=== PATIENT | female | born 1940 | race Caucasian/White ===

== ENCOUNTER 2024-11-10 22:15 | Inpatient (IN) | payer OTHER ==
[~2024-11-10] VITALS: Ht 160 cm; Wt 65.8 kg
[2024-11-10 23:01] LABS: BASOPHILS # (AUTO) 0.1 K/uL (0.0-0.2); BASOPHILS % (AUTO) 0.7 % (0.0-2.0); EOSINOPHILS # (AUTO) 0.1 K/uL (0.0-0.7); EOSINOPHILS % (AUTO) 0.5 % (0.0-6.0); HEMATOCRIT 22 % (33-45); HEMOGLOBIN 7.2 g/dL (11.5-14.8); LYMPHOCYTES # (AUTO) 1.1 K/uL (0.8-4.8); LYMPHOCYTES % (AUTO) 8.9 % (20.0-44.0); MEAN CORPUSCULAR HEMOGLOBIN 27 PG (26.0-33.0); MEAN CORPUSCULAR HGB CONC 33 g/dl (31.0-36.0); MEAN CORPUSCULAR VOLUME 82 fL (82-100); MONOCYTES # (AUTO) 0.8 K/uL (0.1-1.30); MONOCYTES % (AUTO) 6.4 % (2.0-12.0); NEUTROPHILS # (AUTO) 10.5 K/uL (1.8-8.9); NEUTROPHILS % (AUTO) 83.5 % (43.0-81.0); PLATELET COUNT (AUTO) 443 K/uL (150-450); RED BLOOD CELL COUNT(AUTO) 2.69 MIL/uL (4.0-5.2); RED CELL DISTRIBUTION WIDTH 18.4 % (11.5-15.0); WHITE BLOOD COUNT (AUTO) 12.6 K/uL (4.3-11.0)
[2024-11-10 23:16] LABS: CALCIUM, SERUM 8.2 mg/dL (8.5-10.1); CREATININE 0.5 mg/dL (0.6-1.3); INR 1.26 (0.91-1.10); PARTIAL THROMBOPLASTIN TIME 35.5 SEC (24.3-34.3); PROTHROMBIN TIME 13.2 SECS (9.2-11.1)
[2024-11-10 23:20] LABS: ALBUMIN 1.5 g/dL (3.4-5.0); BILIRUBIN,DIRECT 0.4 mg/dL (0.0-0.2); BILIRUBIN,TOTAL 0.6 mg/dL (0.2-1.0); TOTAL PROTEIN, SERUM 5.6 g/dL (6.4-8.2)
[2024-11-10 23:31] LABS: EOSINOPHILS % (MANUAL) 1 % (0-4); LYMPHOCYTES % (MANUAL) 8 % (16-48); MONOCYTES % (MANUAL) 3 % (0-11.0); NEUTROPHILS % (MANUAL) 88 (42-76)
[2024-11-10 23:32] LABS: ANISOCYTOSIS 1+; PLATELET ESTIMATE ADEQUATE; TARGET CELLS FEW
[2024-11-11] MEDS: IV NS 0.9% 1,000 ML BAG IV ONE (00:12)
[2024-11-11] MEDS ORDERED: PIPERACI/TAZO 3.375GM/D5W 50ML PB IV ONE (00:16)
[2024-11-11] MEDS ORDERED: VANCOMYCIN 1 GM /D5W 250 ML PB IV ONE (00:16)
[2024-11-11 00:24] LABS: APPEARANCE,URINE CLOUDY (CLEAR); BILIRUBIN,URINE NEGATIVE (NEGATIVE); BLOOD, URINE 3+ Ery/uL (NEGATIVE); COLOR,URINE YELLOW (YELLOW); KETONES,URINE TRACE mg/dL (NEGATIVE); LEUKOCYTE ESTERASE ,URINE 2+ (NEGATIVE); NITRITE, URINE NEGATIVE (NEGATIVE); PROTEIN,URINE 2+ mg/dl (NEGATIVE); UGLUCOSE NEGATIVE (NEGATIVE); UROBILINOGEN,URINE 0.2 EU/dL (0.2)
[2024-11-11] MEDS ORDERED: MAGNESIUM HYDROXIDE 30 ML UDC PO PRN (00:30)
[2024-11-11] MEDS ORDERED: DEXTROSE 50%-WATER 50 ML DISP.SYRIN IV PRN (00:30)
[2024-11-11] MEDS ORDERED: ACETAMINOPHEN 650 MG/20.3 ML UDC GT PRN (00:30)
[2024-11-11] MEDS ORDERED: ACETAMINOPHEN 325 MG TABLET PO PRN (00:30)
[2024-11-11] MEDS ORDERED: ONDANSETRON HCL/PF 4 MG/2 ML VIAL IVP PRN (00:30)
[2024-11-11 00:40] LABS: LACTIC ACID 2.4 mmol/L (0.4-2.0)
[2024-11-11] MEDS: PIPERACILLIN /TAZOBACTAM 3.375 G in IV D5W 50 ML IV ONE ×2 (00:43→05:14)
[2024-11-11 00:44] LABS: ADD URINE CULTURE YES; BACTERIA,URINE Many /HPF (None Seen); RBC,URINE 51-80 /HPF (0-2); SQUAMOUS EPITHELIAL CELL,UR Moderate /HPF (None Seen); WBC,URINE 21-50 /HPF (0-3)
[2024-11-11] MEDS: VANCOMYCIN 1 GM in IV D5W 250 ML IV ONE (00:53)
[2024-11-11] MEDS: POTASSIUM CL. PREMIX PERIPHER. 50 ML IV SCH (02:05)
[2024-11-11] MEDS ORDERED: POTASSIUM CL. PREMIX PERIPHER. 200 ML ONE (02:11)
[2024-11-11 03:10] VITALS: BP 144/84; TEMP 99.7; O2SAT 100
[2024-11-11] MEDS: POTASSIUM CHLORIDE 20 MEQ POWDER PACKET PEG ONE (04:50)
[2024-11-11] MEDS: POTASSIUM CHLORIDE 20 MEQ POWDER PACKET ONE (04:52)
[2024-11-11] MEDS: PIPERACI/TAZO 3.375GM/D5W 50ML PB IV ONE (05:15)
[2024-11-11] MEDS: BLOOD SUGAR DIAGNOSTIC 1 EACH STRIP IN SCH (05:26)
[2024-11-11] MEDS: INSULIN REGULAR, HUMAN 100 UNIT/ML 3 ML VIAL SQ PRN (05:28)
[2024-11-11] MEDS: VANCOMYCIN 750 MG in IV D5W 250 ML IV ONE (07:37)
[2024-11-11 08:00] VITALS: BP 103/66; TEMP 98.6; O2SAT 100
[2024-11-11] MEDS: PANTOPRAZOLE 40 MG TABLET.DR PO SCH (08:37)
[2024-11-11] MEDS ORDERED: LEVE100S GT (09:01)
[2024-11-11] MEDS ORDERED: NA P133E RC (09:01)
[2024-11-11] MEDS ORDERED: ACET-2070 GT (09:01)
[2024-11-11] MEDS ORDERED: FERR220E2 GT (09:01)
[2024-11-11] MEDS ORDERED: AMIN30LI66 GT (09:01)
[2024-11-11] MEDS ORDERED: ACET160L44 GT (09:01)
[2024-11-11] MEDS ORDERED: LEVO75TA7 GT (09:01)
[2024-11-11] MEDS ORDERED: ASCO500L2 GT (09:01)
[2024-11-11] MEDS ORDERED: CALC-261 GT (09:01)
[2024-11-11] MEDS ORDERED: APIX2.5T GT (09:01)
[2024-11-11] MEDS ORDERED: ALBU2.5V38 IH ×2 (09:01)
[2024-11-11] MEDS ORDERED: ATOR80TA GT (09:01)
[2024-11-11] MEDS ORDERED: ASPI-1169 GT (09:01)
[2024-11-11] MEDS ORDERED: INSU100V39 SQ (09:01)
[2024-11-11] MEDS ORDERED: MULT9LIQ6 GT (09:01)
[2024-11-11] MEDS ORDERED: ACET-2030 GT (09:01)
[2024-11-11] MEDS ORDERED: ZINC1CAP2 GT (09:01)
[2024-11-11] MEDS ORDERED: POLY17PO4 GT (09:01)
[2024-11-11] MEDS ORDERED: SENN-261 GT (09:01)
[2024-11-11] MEDS ORDERED: METO5SOL2 GT (09:01)
[2024-11-11] MEDS ORDERED: CHLO118L3 MM (09:01)
[2024-11-11] MEDS ORDERED: MIDO5TAB4 GT (09:01)
[2024-11-11] MEDS: PIPERACILLIN /TAZOBACTAM 3.375 G in IV D5W 100 ML IV SCH (10:09)
[2024-11-11] MEDS ORDERED: NA PHOS,M-B/NA PHOS,DI-BA 1 EA ENEMA RC PRN ×2 (11:00)
[2024-11-11] MEDS ORDERED: POTASSIUM CHLORIDE 10 MEQ/50 ML PREMIXED IVPB FOR PERIPHERAL LINE IV ONE (11:00)
[2024-11-11] MEDS ORDERED: Medication Not On Formulary EA (Acetaminophen 20 ML) GT PRN ×2 (11:00)
[2024-11-11] MEDS ORDERED: ALBUTEROL FS 2.5 MG/3 ML VIAL.NEB IH PRN ×2 (11:00)
[2024-11-11] MEDS ORDERED: ACETAMINOPHEN ES 500 MG TABLET GT PRN ×2 (11:00)
[2024-11-11 11:03] LABS: BASOPHILS % (AUTO) 0.3 % (0.0-2.0); EOSINOPHILS % (AUTO) 0.3 % (0.0-6.0); HEMATOCRIT 22 % (33-45); LYMPHOCYTES # (AUTO) 0.9 K/uL (0.8-4.8); LYMPHOCYTES % (AUTO) 6.5 % (20.0-44.0); MEAN CORPUSCULAR HEMOGLOBIN 26 PG (26.0-33.0); MEAN CORPUSCULAR HGB CONC 32 g/dl (31.0-36.0); MEAN CORPUSCULAR VOLUME 83 fL (82-100); MONOCYTES # (AUTO) 0.8 K/uL (0.1-1.30); MONOCYTES % (AUTO) 6.5 % (2.0-12.0); NEUTROPHILS # (AUTO) 11.3 K/uL (1.8-8.9); NEUTROPHILS % (AUTO) 86.4 % (43.0-81.0); PLATELET COUNT (AUTO) 459 K/uL (150-450); RED BLOOD CELL COUNT(AUTO) 2.66 MIL/uL (4.0-5.2); RED CELL DISTRIBUTION WIDTH 18.6 % (11.5-15.0); WHITE BLOOD COUNT (AUTO) 13.1 K/uL (4.3-11.0)
[2024-11-11 11:10] LABS: BILIRUBIN,TOTAL 0.8 mg/dL (0.2-1.0); CALCIUM, SERUM 7.4 mg/dL (8.5-10.1); CREATININE 0.4 mg/dL (0.6-1.3); MAGNESIUM 1.5 mg/dL (1.8-2.4); PHOSPHORUS 3.4 mg/dL (2.5-4.9); POTASSIUM 4.9 mmol/L (3.5-5.1); TOTAL PROTEIN, SERUM 5.2 g/dL (6.4-8.2)
[2024-11-11 11:30] LABS: ALBUMIN 1.4 g/dL (3.4-5.0)
[2024-11-11 12:00] VITALS: BP 100/60; TEMP 98.8; O2SAT 100
[2024-11-11] MEDS ORDERED: ALBUTEROL FS 2.5 MG/3 ML VIAL.NEB IH SCH (12:00)
[2024-11-11] MEDS: GLUCERNA 1.2 1,000 ML BOTTLE NG PRN (12:22)
[2024-11-11 12:50] LABS: IRON, SERUM 8 ug/dl (50-175); TOTAL IRON BINDING CAPACITY 98 ug/dl (250-450)
[2024-11-11] MEDS ORDERED: MIDODRINE HCL (5MG) 5 MG TABLET GT SCH (13:00)
[2024-11-11] MEDS ORDERED: METOCLOPRAMIDE HCL 10 MG/10 ML UDC GT SCH (13:00)
[2024-11-11] MEDS: METOCLOPRAMIDE HCL 10 MG/10 ML UDC GT SCH (13:09)
[2024-11-11] MEDS: MEROPENEM 1 G in IV NS 0.9% 100 ML IV SCH (13:09)
[2024-11-11] MEDS: MIDODRINE HCL (5MG) 5 MG TABLET GT SCH (13:09)
[2024-11-11] MEDS: THERAHONEY GEL 1.5 OZ TUBE TP SCH (13:10)
[2024-11-11] MEDS: POTASSIUM CHLORIDE 10 MEQ/50 ML PREMIXED IVPB FOR PERIPHERAL LINE IV ONE (13:10)
[2024-11-11] MEDS: ALBUTEROL FS 2.5 MG/3 ML VIAL.NEB IH SCH (13:37)
[2024-11-11] MEDS: Potassium Chloride 20 MEQ in IV NS 0.9% 1,000 ML IV SCH (13:54)
[2024-11-11 13:59] LABS: FERRITIN 713 ng/mL (8-388)
[2024-11-11 14:06] LABS: BAND % (MANUAL) 2 % (0.0-5.0); LYMPHOCYTES % (MANUAL) 3 % (16-48); MONOCYTES % (MANUAL) 5 % (0-11.0); NEUTROPHILS % (MANUAL) 90 (42-76); PLATELET ESTIMATE INCREASED
[2024-11-11 14:07] LABS: ANISOCYTOSIS 1+; HYPOCHROMASIA 1+
[2024-11-11 16:00] VITALS: BP 96/58; TEMP 98.8; O2SAT 100
[2024-11-11] MEDS ORDERED: Medication Not On Formulary EA (Amino AC/Protein Hydr/Whey Pro (Liquacel Liquid Protein GT SCH (17:00)
[2024-11-11] MEDS: SENNOSIDES 8.6 MG TABLET GT SCH (17:12)
[2024-11-11] MEDS: PROSOURCE / PROSTAT (PYXIS) 30 ML UDC GT SCH (17:13)
[2024-11-11] MEDS ORDERED: SENNOSIDES 8.6 MG TABLET GT SCH (18:00)
[2024-11-11 20:00] VITALS: BP 98/63; TEMP 97.5; O2SAT 100
[2024-11-11] MEDS ORDERED: LEVETIRACETAM SOL (5 ML) 100 MG/ML UDC GT SCH (21:00)
[2024-11-11] MEDS: LEVETIRACETAM SOL (5 ML) 100 MG/ML UDC GT SCH (21:08)
[2024-11-11] MEDS ORDERED: Medication Not On Formulary EA (Atorvastatin Calcium (Lipitor) 80 MG) GT SCH (22:00)
[2024-11-11] MEDS: ATORVASTATIN 40 MG TABLET GT SCH (23:19)
[2024-11-12] VITALS (10 sets, daily range): BP systolic 90–116; BP diastolic 60–86; TEMP 97.5–98.6; O2SAT 99–100
[2024-11-12 06:57] LABS: BASOPHILS # (AUTO) 0.1 K/uL (0.0-0.2); BASOPHILS % (AUTO) 0.4 % (0.0-2.0); EOSINOPHILS # (AUTO) 0.2 K/uL (0.0-0.7); EOSINOPHILS % (AUTO) 0.9 % (0.0-6.0); HEMATOCRIT 23 % (33-45); HEMOGLOBIN 7.5 g/dL (11.5-14.8); LYMPHOCYTES # (AUTO) 0.9 K/uL (0.8-4.8); LYMPHOCYTES % (AUTO) 5.5 % (20.0-44.0); MEAN CORPUSCULAR HEMOGLOBIN 27 PG (26.0-33.0); MEAN CORPUSCULAR HGB CONC 33 g/dl (31.0-36.0); MEAN CORPUSCULAR VOLUME 83 fL (82-100); MONOCYTES # (AUTO) 1.2 K/uL (0.1-1.30); MONOCYTES % (AUTO) 7.2 % (2.0-12.0); NEUTROPHILS # (AUTO) 14.6 K/uL (1.8-8.9); PLATELET COUNT (AUTO) 373 K/uL (150-450); RED BLOOD CELL COUNT(AUTO) 2.79 MIL/uL (4.0-5.2); RED CELL DISTRIBUTION WIDTH 17.7 % (11.5-15.0)
[2024-11-12 07:09] LABS: CALCIUM, SERUM 7.9 mg/dL (8.5-10.1); CREATININE 0.6 mg/dL (0.6-1.3); MAGNESIUM 1.5 mg/dL (1.8-2.4); PHOSPHORUS 3.8 mg/dL (2.5-4.9); POTASSIUM 4.9 mmol/L (3.5-5.1)
[2024-11-12] MEDS ORDERED: LEVOTHYROXINE SODIUM 75 MCG TABLET GT SCH (07:30)
[2024-11-12 07:43] LABS: THYROID STIMULATING HORMONE 9.96 uIU/mL (0.358-3.74)
[2024-11-12] MEDS ORDERED: VANCOMYCIN HCL 1.25 GM in IV D5W 260 ML IV SCH (08:00)
[2024-11-12] MEDS: MULTIVIT W/MINERALS 1 TAB TABLET GT SCH (08:11)
[2024-11-12] MEDS: CALCIUM CARB 600MG /VIT D 1 EACH TABLET GT SCH (08:11)
[2024-11-12] MEDS: LEVOTHYROXINE SODIUM 75 MCG TABLET GT SCH (08:11)
[2024-11-12] MEDS: ASCORBIC ACID 500 MG TABLET GT SCH (08:12)
[2024-11-12] MEDS: ASPIRIN 81 MG TAB.CHEW GT SCH (08:12)
[2024-11-12] MEDS: POLYETHYLENE GLYCOL 3350 17 GM POWD.PACK GT SCH (08:12)
[2024-11-12] MEDS: ZINC SULFATE 220 MG CAPSULE GT SCH (08:12)
[2024-11-12] MEDS: FERROUS SULFATE UDC 300 MG/5 ML UDC GT SCH (08:12)
[2024-11-12] MEDS ORDERED: Medication Not On Formulary EA (Calcium Carbonate/Vitamin D3 (Calcium 500 + Vit D 200 Ta GT SCH (09:00)
[2024-11-12] MEDS ORDERED: Medication Not On Formulary EA (Ferrous Sulfate 7.5 ML) GT SCH (09:00)
[2024-11-12] MEDS ORDERED: ZINC SULFATE GT SCH (09:00)
[2024-11-12] MEDS ORDERED: Medication Not On Formulary EA (Multivit &Minerals/Ferrous Fum (Multivitamin Liquid) 5 M GT SCH (09:00)
[2024-11-12] MEDS ORDERED: POLYETHYLENE GLYCOL 3350 17 GM POWD.PACK GT SCH (09:00)
[2024-11-12] MEDS ORDERED: ASPIRIN 81 MG TAB.CHEW GT SCH (09:00)
[2024-11-12] MEDS ORDERED: ASCORBIC ACID GT SCH (09:00)
[2024-11-12] MEDS: Magnesium 1GM/D5W 100ML PREMIX 100 ML IV SCH ×2 (09:10→09:11)
[2024-11-12] MEDS: PANTOPRAZOLE 40 MG TABLET.DR PO SCH (09:13)
[2024-11-12 09:35] LABS: EOSINOPHILS % (MANUAL) 1 % (0-4); LYMPHOCYTES % (MANUAL) 5 % (16-48); MONOCYTES % (MANUAL) 6 % (0-11.0); NEUTROPHILS % (MANUAL) 88 (42-76); PLATELET ESTIMATE ADEQUATE
[2024-11-12 10:07] LABS: THYROID STIMULATING HORMONE 10.05 uIU/mL (0.358-3.74)
[2024-11-12] MEDS: SOD FERRIC GLUC 125 MG in IV NS 0.9% 100 ML IV SCH (14:47)
[2024-11-13] VITALS: BP 113/79; TEMP 98.4; O2SAT 99
[2024-11-13 04:00] VITALS: BP 98/69; TEMP 98.2; O2SAT 100
[2024-11-13 07:17] LABS: BASOPHILS % (AUTO) 0.4 % (0.0-2.0); EOSINOPHILS # (AUTO) 0.1 K/uL (0.0-0.7); EOSINOPHILS % (AUTO) 1.5 % (0.0-6.0); HEMATOCRIT 24 % (33-45); HEMOGLOBIN 7.9 g/dL (11.5-14.8); LYMPHOCYTES # (AUTO) 0.9 K/uL (0.8-4.8); LYMPHOCYTES % (AUTO) 9.4 % (20.0-44.0); MEAN CORPUSCULAR HEMOGLOBIN 27 PG (26.0-33.0); MEAN CORPUSCULAR HGB CONC 33 g/dl (31.0-36.0); MEAN CORPUSCULAR VOLUME 83 fL (82-100); MONOCYTES # (AUTO) 0.9 K/uL (0.1-1.30); MONOCYTES % (AUTO) 9.7 % (2.0-12.0); NEUTROPHILS # (AUTO) 7.8 K/uL (1.8-8.9); PLATELET COUNT (AUTO) 443 K/uL (150-450); RED BLOOD CELL COUNT(AUTO) 2.92 MIL/uL (4.0-5.2); RED CELL DISTRIBUTION WIDTH 17.6 % (11.5-15.0); WHITE BLOOD COUNT (AUTO) 9.8 K/uL (4.3-11.0)
[2024-11-13 07:28] LABS: CALCIUM, SERUM 7.6 mg/dL (8.5-10.1); CREATININE 0.8 mg/dL (0.6-1.3); POTASSIUM 4.7 mmol/L (3.5-5.1)
[2024-11-13 08:00] VITALS: BP 99/65; TEMP 97.5; O2SAT 100
[2024-11-13] MEDS: Z GUARD REMEDY 4 OZ OINT TP PRN (09:25)
[2024-11-13] MEDS: LEVOTHYROXINE SODIUM 100 MCG TABLET GT SCH (09:27)
[2024-11-13 11:43] LABS: ANISOCYTOSIS 1+; EOSINOPHILS % (MANUAL) 3 % (0-4); LYMPHOCYTES % (MANUAL) 10 % (16-48); MONOCYTES % (MANUAL) 10 % (0-11.0); NEUTROPHILS % (MANUAL) 77 (42-76); PLATELET ESTIMATE ADEQUATE
[2024-11-13 12:00] VITALS: BP 99/68; TEMP 98.4; O2SAT 99
[2024-11-13 16:00] VITALS: BP 129/64; TEMP 98.1; O2SAT 100
[2024-11-13] MEDS: MEROPENEM 1 G in IV NS 0.9% 100 ML IV SCH (18:23)
[2024-11-13 20:00] VITALS: BP 115/81; TEMP 98.1; O2SAT 100
[2024-11-14] VITALS: BP 111/66; TEMP 98.1; O2SAT 100
[2024-11-14 04:00] VITALS: BP 104/85; TEMP 98.1; O2SAT 100
[2024-11-14] MEDS ORDERED: MERO1PIG IV (07:15)
[2024-11-14 07:47] LABS: POTASSIUM 4.5 mmol/L (3.5-5.1)
[2024-11-14 08:00] VITALS: BP 100/64; TEMP 97.5; O2SAT 100
[2024-11-14 08:08] LABS: CALCIUM, SERUM 7.5 mg/dL (8.5-10.1); CREATININE 0.7 mg/dL (0.6-1.3)
[2024-11-14 09:51] LABS: BASOPHILS % (AUTO) 0.5 % (0.0-2.0); EOSINOPHILS # (AUTO) 0.2 K/uL (0.0-0.7); EOSINOPHILS % (AUTO) 2.1 % (0.0-6.0); HEMATOCRIT 24 % (33-45); HEMOGLOBIN 7.7 g/dL (11.5-14.8); LYMPHOCYTES # (AUTO) 1.1 K/uL (0.8-4.8); LYMPHOCYTES % (AUTO) 11.7 % (20.0-44.0); MEAN CORPUSCULAR HEMOGLOBIN 27 PG (26.0-33.0); MEAN CORPUSCULAR HGB CONC 32 g/dl (31.0-36.0); MEAN CORPUSCULAR VOLUME 84 fL (82-100); MONOCYTES # (AUTO) 0.8 K/uL (0.1-1.30); NEUTROPHILS # (AUTO) 7.2 K/uL (1.8-8.9); NEUTROPHILS % (AUTO) 76.7 % (43.0-81.0); PLATELET COUNT (AUTO) 425 K/uL (150-450); RED BLOOD CELL COUNT(AUTO) 2.85 MIL/uL (4.0-5.2); RED CELL DISTRIBUTION WIDTH 17.9 % (11.5-15.0); WHITE BLOOD COUNT (AUTO) 9.4 K/uL (4.3-11.0)
[2024-11-14 12:00] VITALS: BP 115/83; TEMP 97.5; O2SAT 100
[2024-11-14 12:30] LABS: ANISOCYTOSIS 1+; LYMPHOCYTES % (MANUAL) 9 % (16-48); MONOCYTES % (MANUAL) 2 % (0-11.0); MYELOCYTES % 4 % (0-0); NEUTROPHILS % (MANUAL) 85 (42-76); PLATELET ESTIMATE ADEQUATE; TARGET CELLS 1+
== END 2024-11-14 13:30 | DRG 871 ==
LOC: ER 22:19 → TELE1 11-11 01:48
PROVIDERS: ADMIT Nurse Practitioner Family; ATTEND Internal Medicine
PROC: 5A1945Z Respiratory Ventilation, 24-96 Consecutive Hours (ICD-10-PCS; principal; 2024-11-11)
PROC: 30233N1 Transfusion of Nonautologous Red Blood Cells into Peripheral Vein, Percutaneous Approach (ICD-10-PCS; 2024-11-11)
DX: A41.9 Sepsis, unspecified organism (principal); E43 Unspecified severe protein-calorie malnutrition; L89.154 Pressure ulcer of sacral region, stage 4; L89.313 Pressure ulcer of right buttock, stage 3; G93.41 Metabolic encephalopathy; J95.851 Ventilator associated pneumonia; Z99.11 Dependence on respirator [ventilator] status; N39.0 Urinary tract infection, site not specified; K92.2 Gastrointestinal hemorrhage, unspecified; E87.1 Hypo-osmolality and hyponatremia; I48.20 Chronic atrial fibrillation, unspecified; J96.10 Chronic respiratory failure, unspecified whether with hypoxia or hypercapnia; J98.11 Atelectasis; J90 Pleural effusion, not elsewhere classified; R65.20 Severe sepsis without septic shock; Y84.8 Other medical procedures as the cause of abnormal reaction of the patient, or of later complication, without mention of misadventure at the time of the procedure; K21.9 Gastro-esophageal reflux disease without esophagitis; Y92.9 Unspecified place or not applicable; Z20.822 Contact with and (suspected) exposure to COVID-19; F03.90 Unspecified dementia, unspecified severity, without behavioral disturbance, psychotic disturbance, mood disturbance, and anxiety; Z93.1 Gastrostomy status; Z93.0 Tracheostomy status; I50.9 Heart failure, unspecified; E03.9 Hypothyroidism, unspecified; Z87.09 Personal history of other diseases of the respiratory system; B96.89 Other specified bacterial agents as the cause of diseases classified elsewhere; E87.6 Hypokalemia; E88.09 Other disorders of plasma-protein metabolism, not elsewhere classified; R13.10 Dysphagia, unspecified; D64.9 Anemia, unspecified; E78.5 Hyperlipidemia, unspecified; E83.42 Hypomagnesemia; E11.9 Type 2 diabetes mellitus without complications; Z79.01 Long term (current) use of anticoagulants; I25.10 Atherosclerotic heart disease of native coronary artery without angina pectoris; I25.2 Old myocardial infarction; Z79.890 Hormone replacement therapy; Z79.4 Long term (current) use of insulin; Z79.82 Long term (current) use of aspirin; Z79.51 Long term (current) use of inhaled steroids; Z79.899 Other long term (current) drug therapy; L89.626 Pressure-induced deep tissue damage of left heel; L89.616 Pressure-induced deep tissue damage of right heel; I95.89 Other hypotension; R60.1 Generalized edema; G40.909 Epilepsy, unspecified, not intractable, without status epilepticus; Z87.440 Personal history of urinary (tract) infections; Z86.19 Personal history of other infectious and parasitic diseases
CPT/HCPCS: 31720; 36415; 71045-TC; 80048-TC; 80053-TC; 80076-TC; 81001; 82728-TC; 82962-TC; 83540-TC; 83605-TC; 83735-TC; 84100-TC; 84439-TC; 84443-TC; 84550-TC; 85025-TC; 85730-TC; 86850-TC; 87040-TC; 87081-TC; 87086-TC; 93307-TC; 94002-TC; 94003-TC; 94760-TC; 94762-TC; 94799-TC; 99082-TC; A4223; A6253; G0378; J1815; J1953; J2185; J2543; J2916; J3370; J3371; J3475; J3480; J7030; J7050; J7060; J8597; P9016

== ENCOUNTER 2024-12-03 15:11 | Inpatient (IN) | payer OTHER ==
[~2024-12-03] VITALS: Ht 157.5 cm; Wt 83.5 kg
[2024-12-03] VITALS (8 sets, daily range): BP systolic 101–140; BP diastolic 76–94; TEMP 98.2; O2SAT 92–100
[~2024-12-03 15:11] MED LIST: ACET-2030 GT; ACET-2070 GT; ACET160L44 GT; ALBU2.5V38 IH; AMIN30LI66 GT; APIX2.5T GT; ASCO500L2 GT; ASPI-1169 GT; ATOR80TA GT; CALC-261 GT; CHLO118L3 MM; FERR220E2 GT; INSU100V39 SQ; LEVE100S GT; LEVO75TA7 GT; MERO1PIG IV; METO5SOL2 GT; MIDO5TAB4 GT; MULT9LIQ6 GT; NA P133E RC; POLY17PO4 GT; SENN-261 GT; ZINC1CAP2 GT
[2024-12-03 15:38] LABS: BASOPHILS # (AUTO) 0.1 K/uL (0.0-0.2); BASOPHILS % (AUTO) 0.4 % (0.0-2.0); EOSINOPHILS # (AUTO) 0.4 K/uL (0.0-0.7); EOSINOPHILS % (AUTO) 2.6 % (0.0-6.0); HEMATOCRIT 25 % (33-45); HEMOGLOBIN 7.7 g/dL (11.5-14.8); LYMPHOCYTES # (AUTO) 2.3 K/uL (0.8-4.8); LYMPHOCYTES % (AUTO) 14.7 % (20.0-44.0); MEAN CORPUSCULAR HEMOGLOBIN 29 PG (26.0-33.0); MEAN CORPUSCULAR HGB CONC 31 g/dl (31.0-36.0); MEAN CORPUSCULAR VOLUME 93 fL (82-100); MONOCYTES # (AUTO) 0.9 K/uL (0.1-1.30); MONOCYTES % (AUTO) 5.8 % (2.0-12.0); NEUTROPHILS # (AUTO) 11.8 K/uL (1.8-8.9); NEUTROPHILS % (AUTO) 76.5 % (43.0-81.0); PLATELET COUNT (AUTO) 406 K/uL (150-450); RED BLOOD CELL COUNT(AUTO) 2.67 MIL/uL (4.0-5.2); RED CELL DISTRIBUTION WIDTH 25.4 % (11.5-15.0); WHITE BLOOD COUNT (AUTO) 15.4 K/uL (4.3-11.0)
[2024-12-03] MEDS: PIPERACILLIN /TAZOBACTAM 3.375 G in IV D5W 50 ML IV ONE (15:45)
[2024-12-03 15:50] LABS: ABG BASE EXCESS 8.1 mmol/L (-2.0-3.0); ABG OXYGEN SATURATION 99.6 % (94.0-98.0); ABG PCO2 54.2 mmHg (32.0-45.0); ABG PH 7.411 (7.350-7.450); ABG PO2 222.7 mmHg (83.0-108.0); ABG TOTAL HEMOGLOBIN 7.6 G/dL (12.0-16.0); COHb 0.2 % (0.5-1.5); MetHb 0.3 % (0.0-1.5); O2Hb 99.1 % (94.0-97.0); PEEP,BG 5 cm H2O; VT, ABG 450 mL
[2024-12-03 15:52] LABS: INR 1.3 (0.91-1.10); PARTIAL THROMBOPLASTIN TIME 28.5 SEC (24.3-34.3); PROTHROMBIN TIME 13.2 SECS (9.2-11.1)
[2024-12-03 15:59] LABS: LACTIC ACID 2.6 mmol/L (0.4-2.0)
[2024-12-03 16:01] LABS: CARBON DIOXIDE 35 mmol/L (21-32); CHLORIDE 101 mmol/L (98-107); POTASSIUM 4.6 mmol/L (3.5-5.1); SODIUM SERUM 137 mmol/L (136-145)
[2024-12-03 16:12] LABS: CALCIUM, SERUM 8.8 mg/dL (8.5-10.1); GLUCOSE 178 mg/dL (74-106); UREA NITROGEN, BLOOD 18 mg/dL (7-18)
[2024-12-03 16:13] LABS: ALANINE AMINOTRANSFERASE 47 U/L (12-78); ALBUMIN 1.6 g/dL (3.4-5.0); ALKALINE PHOSPHATASE 241 U/L (46-116); ASPARTATE AMINOTRANSFERASE 76 U/L (15-37); BILIRUBIN,DIRECT 0.3 mg/dL (0.0-0.2); BILIRUBIN,TOTAL 0.6 mg/dL (0.2-1.0); CREATININE 0.5 mg/dL (0.6-1.3); TOTAL PROTEIN, SERUM 7.2 g/dL (6.4-8.2)
[2024-12-03] MEDS: VANCOMYCIN 1 GM in IV D5W 250 ML IV ONE (16:15)
[2024-12-03 16:24] LABS: APPEARANCE,URINE CLEAR (CLEAR); BILIRUBIN,URINE Negative (NEGATIVE); BLOOD, URINE Moderate Ery/uL (NEGATIVE); COLOR,URINE YELLOW (YELLOW); KETONES,URINE Negative (NEGATIVE); LEUKOCYTE ESTERASE ,URINE Small (NEGATIVE); NITRITE, URINE NEGATIVE (NEGATIVE); PROTEIN,URINE 30 mg/dl (NEGATIVE); UGLUCOSE Negative (NEGATIVE); UROBILINOGEN,URINE 0.2 EU/dL (0.2)
[2024-12-03 16:25] LABS: ADD URINE CULTURE YES; BACTERIA,URINE Few /HPF (None Seen); SQUAMOUS EPITHELIAL CELL,UR Few /HPF (None Seen)
[2024-12-03] MEDS ORDERED: FUROSEMIDE 40 MG/4 ML VIAL ONE ×2 (16:25→18:29)
[2024-12-03] MEDS: FUROSEMIDE 40 MG/4 ML VIAL IV ONE (16:30)
[2024-12-03] MEDS ORDERED: FURO-145 GT (17:56)
[2024-12-03] MEDS ORDERED: TOBR5DRO48 LEFTEYE (17:56)
[2024-12-03] MEDS ORDERED: PANT40TA2 GT (17:56)
[2024-12-03] MEDS ORDERED: ACETAMINOPHEN 325 MG TABLET PO PRN (18:00)
[2024-12-03] MEDS ORDERED: MAG HYDROX/AL HYDROX/SIMETH 30 ML UDC PO PRN (18:00)
[2024-12-03] MEDS ORDERED: ZOLPIDEM TARTRATE 5 MG TABLET PO PRN (18:00)
[2024-12-03] MEDS: FUROSEMIDE 20 MG/2 ML VIAL IV ONE (18:40)
[2024-12-03] MEDS ORDERED: FUROSEMIDE 20 MG/2 ML VIAL ONE (19:02)
[2024-12-03] MEDS: IV D5/ 0.9% NACL 1,000 ML IV PRN (19:40)
[2024-12-03 20:56] LABS: BAND % (MANUAL) 3 % (0.0-5.0); EOSINOPHILS % (MANUAL) 4 % (0-4); LYMPHOCYTES % (MANUAL) 14 % (16-48); MONOCYTES % (MANUAL) 2 % (0-11.0); NEUTROPHILS % (MANUAL) 77 (42-76); PLATELET ESTIMATE ADEQUATE
[2024-12-03 20:57] LABS: ANISOCYTOSIS 1+; ROULEAUX 1+
[2024-12-03] MEDS: CEFEPIME 2 GM in IV D5W 100 ML IV SCH (21:23)
[2024-12-04] VITALS (40 sets, daily range): BP systolic 85–134; BP diastolic 56–97; TEMP 97.8–98.9; O2SAT 80–100
[2024-12-04 04:41] LABS: BASOPHILS # (AUTO) 0.1 K/uL (0.0-0.2); BASOPHILS % (AUTO) 0.5 % (0.0-2.0); EOSINOPHILS # (AUTO) 0.3 K/uL (0.0-0.7); EOSINOPHILS % (AUTO) 1.9 % (0.0-6.0); LYMPHOCYTES # (AUTO) 1.1 K/uL (0.8-4.8); LYMPHOCYTES % (AUTO) 8.5 % (20.0-44.0); MEAN CORPUSCULAR HEMOGLOBIN 29 PG (26.0-33.0); MEAN CORPUSCULAR HGB CONC 31 g/dl (31.0-36.0); MEAN CORPUSCULAR VOLUME 92 fL (82-100); MONOCYTES # (AUTO) 0.9 K/uL (0.1-1.30); MONOCYTES % (AUTO) 6.7 % (2.0-12.0); NEUTROPHILS # (AUTO) 10.6 K/uL (1.8-8.9); NEUTROPHILS % (AUTO) 82.4 % (43.0-81.0); PLATELET COUNT (AUTO) 338 K/uL (150-450); RED BLOOD CELL COUNT(AUTO) 2.15 MIL/uL (4.0-5.2); RED CELL DISTRIBUTION WIDTH 26.7 % (11.5-15.0); WHITE BLOOD COUNT (AUTO) 12.9 K/uL (4.3-11.0)
[2024-12-04 05:01] LABS: CALCIUM, SERUM 8.3 mg/dL (8.5-10.1); CREATININE 0.5 mg/dL (0.6-1.3); MAGNESIUM 1.6 mg/dL (1.8-2.4); PHOSPHORUS 3.6 mg/dL (2.5-4.9); POTASSIUM 3.7 mmol/L (3.5-5.1)
[2024-12-04 05:44] LABS: HEMATOCRIT 20 % (33-45); HEMOGLOBIN 6.1 g/dL (11.5-14.8)
[2024-12-04 06:18] LABS: ANISOCYTOSIS 2+; EOSINOPHILS % (MANUAL) 1 % (0-4); HYPOCHROMASIA 1+; LYMPHOCYTES % (MANUAL) 9 % (16-48); MONOCYTES % (MANUAL) 4 % (0-11.0); NEUTROPHILS % (MANUAL) 86 (42-76); PLATELET ESTIMATE ADEQUATE
[2024-12-04] MEDS ORDERED: DEXTROSE 50%-WATER 50 ML DISP.SYRIN IV PRN (08:00)
[2024-12-04] MEDS: Magnesium 1GM/D5W 100ML PREMIX 100 ML IV SCH (11:10)
[2024-12-04] MEDS: LEVOTHYROXINE SODIUM 75 MCG TABLET PO SCH (11:10)
[2024-12-04] MEDS: LEVETIRACETAM SOL (5 ML) 100 MG/ML UDC PO SCH (11:10)
[2024-12-04] MEDS: BLOOD SUGAR DIAGNOSTIC 1 EACH STRIP IN SCH (11:49)
[2024-12-04] MEDS: PANTOPRAZOLE 40 MG VIAL IV SCH (11:56)
[2024-12-04] MEDS ORDERED: BLOOD SUGAR DIAGNOSTIC 1 EACH STRIP IN SCH (12:00)
[2024-12-04] MEDS: MIDODRINE HCL (5MG) 5 MG TABLET GT SCH (13:15)
[2024-12-04] MEDS: GLUCERNA 1.2 1,000 ML BOTTLE NG PRN (13:17)
[2024-12-04] MEDS: ATORVASTATIN 40 MG TABLET PO SCH (21:17)
[2024-12-04] MEDS: VANCOMYCIN HCL 1.25 GM in IV D5W 250 ML IV SCH (21:24)
[2024-12-05] VITALS (22 sets, daily range): BP systolic 95–143; BP diastolic 67–92; TEMP 97.7–98.9; O2SAT 99–100
[2024-12-05 04:42] LABS: BASOPHILS # (AUTO) 0.1 K/uL (0.0-0.2); BASOPHILS % (AUTO) 0.5 % (0.0-2.0); EOSINOPHILS # (AUTO) 0.3 K/uL (0.0-0.7); EOSINOPHILS % (AUTO) 2.7 % (0.0-6.0); HEMATOCRIT 26 % (33-45); HEMOGLOBIN 8.4 g/dL (11.5-14.8); LYMPHOCYTES # (AUTO) 1.3 K/uL (0.8-4.8); LYMPHOCYTES % (AUTO) 10.2 % (20.0-44.0); MEAN CORPUSCULAR HEMOGLOBIN 29 PG (26.0-33.0); MEAN CORPUSCULAR HGB CONC 32 g/dl (31.0-36.0); MEAN CORPUSCULAR VOLUME 91 fL (82-100); MONOCYTES # (AUTO) 0.8 K/uL (0.1-1.30); MONOCYTES % (AUTO) 6.8 % (2.0-12.0); NEUTROPHILS # (AUTO) 9.8 K/uL (1.8-8.9); NEUTROPHILS % (AUTO) 79.8 % (43.0-81.0); PLATELET COUNT (AUTO) 339 K/uL (150-450); RED BLOOD CELL COUNT(AUTO) 2.87 MIL/uL (4.0-5.2); WHITE BLOOD COUNT (AUTO) 12.3 K/uL (4.3-11.0)
[2024-12-05 05:01] LABS: CALCIUM, SERUM 8.1 mg/dL (8.5-10.1); CREATININE 0.5 mg/dL (0.6-1.3); MAGNESIUM 2.1 mg/dL (1.8-2.4); PHOSPHORUS 3.6 mg/dL (2.5-4.9); POTASSIUM 3.3 mmol/L (3.5-5.1)
[2024-12-05] MEDS: LEVOTHYROXINE SODIUM 75 MCG TABLET GT SCH (08:16)
[2024-12-05] MEDS: CALCIUM CARB 600MG /VIT D 1 EACH TABLET PO SCH (08:17)
[2024-12-05] MEDS: ZINC SULFATE 220 MG CAPSULE PO SCH (08:17)
[2024-12-05] MEDS: PANTOPRAZOLE 40 MG/PACK PACK GT SCH (09:19)
[2024-12-05] MEDS: POTASSIUM CL. PREMIX PERIPHER. 50 ML IV SCH (09:22)
[2024-12-05] MEDS: MAGNESIUM HYDROXIDE 30 ML UDC PO PRN (17:59)
[2024-12-05] MEDS ORDERED: MICAFUNGIN SODIUM 100 MG VIAL IV ONE (23:35)
[2024-12-06] VITALS: BP 146/84; TEMP 207.5; TEMP 97.5; O2SAT 100
[2024-12-06] MEDS: INSULIN REGULAR, HUMAN 100 UNIT/ML 3 ML VIAL SQ PRN (00:05)
[2024-12-06] MEDS: MICAFUNGIN SODIUM 100 MG in IV NS 0.9% 100 ML IV SCH (01:34)
[2024-12-06 04:00] VITALS: BP 131/91; TEMP 97.5; O2SAT 100
[2024-12-06 07:52] LABS: BILIRUBIN,TOTAL 0.9 mg/dL (0.2-1.0); CALCIUM, SERUM 7.9 mg/dL (8.5-10.1); CREATININE 0.4 mg/dL (0.6-1.3); MAGNESIUM 2.1 mg/dL (1.8-2.4); PHOSPHORUS 3.5 mg/dL (2.5-4.9); POTASSIUM 3.5 mmol/L (3.5-5.1); TOTAL PROTEIN, SERUM 5.9 g/dL (6.4-8.2)
[2024-12-06 07:58] LABS: BASOPHILS % (AUTO) 0.5 % (0.0-2.0); EOSINOPHILS # (AUTO) 0.3 K/uL (0.0-0.7); EOSINOPHILS % (AUTO) 3.4 % (0.0-6.0); HEMATOCRIT 26 % (33-45); HEMOGLOBIN 8.6 g/dL (11.5-14.8); LYMPHOCYTES # (AUTO) 0.9 K/uL (0.8-4.8); LYMPHOCYTES % (AUTO) 10.3 % (20.0-44.0); MEAN CORPUSCULAR HEMOGLOBIN 30 PG (26.0-33.0); MEAN CORPUSCULAR HGB CONC 33 g/dl (31.0-36.0); MEAN CORPUSCULAR VOLUME 91 fL (82-100); MONOCYTES # (AUTO) 0.6 K/uL (0.1-1.30); MONOCYTES % (AUTO) 7.4 % (2.0-12.0); NEUTROPHILS # (AUTO) 6.6 K/uL (1.8-8.9); NEUTROPHILS % (AUTO) 78.4 % (43.0-81.0); PLATELET COUNT (AUTO) 321 K/uL (150-450); RED BLOOD CELL COUNT(AUTO) 2.89 MIL/uL (4.0-5.2); RED CELL DISTRIBUTION WIDTH 23.7 % (11.5-15.0); WHITE BLOOD COUNT (AUTO) 8.4 K/uL (4.3-11.0)
[2024-12-06 08:00] VITALS: BP 100/50; TEMP 98.1; O2SAT 94
[2024-12-06 08:19] LABS: ALBUMIN 1.3 g/dL (3.4-5.0)
[2024-12-06 09:24] LABS: INR 1.24 (0.91-1.10)
[2024-12-06] MEDS: DAKINS QUARTER STRENGTH (0.125%) 480 ML BOTTLE TOP SCH (09:50)
[2024-12-06 16:21] VITALS: BP 126/78; TEMP 97.5; O2SAT 99
[2024-12-06 17:30] LABS: PROTEIN, BODY FLUID 2.9 G/DL
[2024-12-06 20:00] VITALS: BP 131/104; TEMP 98.1; O2SAT 96
[2024-12-06 21:00] LABS: APPEARANCE,SPUN,BODY FLUID CLEAR (CLEAR); TOTAL VOLUME,BODY FLUID 1450 mL
[2024-12-06 21:01] LABS: MONOCYTES,BODY FLUID 1 %; WBC, BODY FLUID 753 /cu. mm. (0-200)
[2024-12-06] MEDS ORDERED: MEROPENEM 500MG/NS 50 ML PB IV ONE (21:31)
[2024-12-06] MEDS: ONDANSETRON HCL/PF 4 MG/2 ML VIAL IVP PRN (21:49)
[2024-12-06] MEDS: MEROPENEM 1 G in IV NS 0.9% 100 ML IV ONE (22:20)
[2024-12-07] VITALS: BP 109/77; TEMP 97.9; O2SAT 96
[2024-12-07 04:00] VITALS: BP 90/78; TEMP 97.7; O2SAT 100
[2024-12-07 07:50] LABS: BASOPHILS # (AUTO) 0.1 K/uL (0.0-0.2); BASOPHILS % (AUTO) 0.6 % (0.0-2.0); EOSINOPHILS # (AUTO) 0.1 K/uL (0.0-0.7); EOSINOPHILS % (AUTO) 1.8 % (0.0-6.0); HEMATOCRIT 27 % (33-45); HEMOGLOBIN 8.5 g/dL (11.5-14.8); LYMPHOCYTES # (AUTO) 1.2 K/uL (0.8-4.8); MEAN CORPUSCULAR HEMOGLOBIN 30 PG (26.0-33.0); MEAN CORPUSCULAR HGB CONC 32 g/dl (31.0-36.0); MEAN CORPUSCULAR VOLUME 93 fL (82-100); MONOCYTES # (AUTO) 0.8 K/uL (0.1-1.30); MONOCYTES % (AUTO) 9.7 % (2.0-12.0); NEUTROPHILS # (AUTO) 6.2 K/uL (1.8-8.9); NEUTROPHILS % (AUTO) 73.9 % (43.0-81.0); PLATELET COUNT (AUTO) 192 K/uL (150-450); RED BLOOD CELL COUNT(AUTO) 2.84 MIL/uL (4.0-5.2); RED CELL DISTRIBUTION WIDTH 23.4 % (11.5-15.0); WHITE BLOOD COUNT (AUTO) 8.3 K/uL (4.3-11.0)
[2024-12-07 07:54] LABS: CALCIUM, SERUM 7.9 mg/dL (8.5-10.1); CREATININE 0.6 mg/dL (0.6-1.3); MAGNESIUM 2.4 mg/dL (1.8-2.4); PHOSPHORUS 4.2 mg/dL (2.5-4.9); POTASSIUM 4.2 mmol/L (3.5-5.1); TOTAL PROTEIN, SERUM 6.2 g/dL (6.4-8.2)
[2024-12-07 07:58] LABS: ALBUMIN 1.3 g/dL (3.4-5.0)
[2024-12-07 08:25] VITALS: BP 114/90; TEMP 97.9; O2SAT 96
[2024-12-07] MEDS: Z GUARD REMEDY 4 OZ OINT TP PRN (08:57)
[2024-12-07] MEDS: MEROPENEM 1 G in IV NS 0.9% 100 ML IV SCH (09:01)
[2024-12-07 12:11] VITALS: BP 92/50; TEMP 98; O2SAT 96
[2024-12-07 16:13] VITALS: BP 123/88; TEMP 97.6; O2SAT 99
[2024-12-07 20:00] VITALS: BP 124/89; TEMP 97.9; O2SAT 100
[2024-12-08] VITALS: BP 134/80; TEMP 97.7; O2SAT 100
[2024-12-08 04:00] VITALS: BP 120/55; TEMP 97.5; O2SAT 100
[2024-12-08 07:28] LABS: BASOPHILS # (AUTO) 0.1 K/uL (0.0-0.2); BASOPHILS % (AUTO) 0.7 % (0.0-2.0); EOSINOPHILS # (AUTO) 0.2 K/uL (0.0-0.7); EOSINOPHILS % (AUTO) 2.7 % (0.0-6.0); HEMATOCRIT 28 % (33-45); LYMPHOCYTES # (AUTO) 0.9 K/uL (0.8-4.8); LYMPHOCYTES % (AUTO) 9.4 % (20.0-44.0); MEAN CORPUSCULAR HEMOGLOBIN 30 PG (26.0-33.0); MEAN CORPUSCULAR HGB CONC 32 g/dl (31.0-36.0); MEAN CORPUSCULAR VOLUME 92 fL (82-100); MONOCYTES # (AUTO) 0.7 K/uL (0.1-1.30); MONOCYTES % (AUTO) 7.5 % (2.0-12.0); NEUTROPHILS # (AUTO) 7.4 K/uL (1.8-8.9); NEUTROPHILS % (AUTO) 79.7 % (43.0-81.0); PLATELET COUNT (AUTO) 279 K/uL (150-450); RED BLOOD CELL COUNT(AUTO) 3.04 MIL/uL (4.0-5.2); RED CELL DISTRIBUTION WIDTH 22.6 % (11.5-15.0); WHITE BLOOD COUNT (AUTO) 9.3 K/uL (4.3-11.0)
[2024-12-08 07:30] VITALS: BP 145/73; TEMP 97.3; O2SAT 100
[2024-12-08 07:48] LABS: THYROID STIMULATING HORMONE 11.27 uIU/mL (0.358-3.74); URIC ACID 5.3 mg/dL (2.6-7.2)
[2024-12-08 08:04] LABS: BILIRUBIN,TOTAL 0.7 mg/dL (0.2-1.0); CALCIUM, SERUM 8.1 mg/dL (8.5-10.1); CREATININE 0.8 mg/dL (0.6-1.3); MAGNESIUM 2.1 mg/dL (1.8-2.4); PHOSPHORUS 3.8 mg/dL (2.5-4.9); POTASSIUM 3.7 mmol/L (3.5-5.1); TOTAL PROTEIN, SERUM 6.1 g/dL (6.4-8.2)
[2024-12-08 08:07] LABS: ALBUMIN 1.3 g/dL (3.4-5.0)
[2024-12-08 16:26] VITALS: BP 128/105; TEMP 98.2; O2SAT 100
[2024-12-08 20:00] VITALS: BP 128/92; TEMP 97.3; O2SAT 99
[2024-12-09] VITALS: BP 133/82; TEMP 97.5; O2SAT 100
[2024-12-09 05:00] VITALS: BP 124/80; TEMP 98.2; O2SAT 98
[2024-12-09 06:59] LABS: BASOPHILS # (AUTO) 0.1 K/uL (0.0-0.2); BASOPHILS % (AUTO) 0.7 % (0.0-2.0); EOSINOPHILS # (AUTO) 0.3 K/uL (0.0-0.7); EOSINOPHILS % (AUTO) 3.5 % (0.0-6.0); HEMATOCRIT 28 % (33-45); HEMOGLOBIN 8.9 g/dL (11.5-14.8); LYMPHOCYTES # (AUTO) 0.9 K/uL (0.8-4.8); LYMPHOCYTES % (AUTO) 10.7 % (20.0-44.0); MEAN CORPUSCULAR HEMOGLOBIN 30 PG (26.0-33.0); MEAN CORPUSCULAR HGB CONC 32 g/dl (31.0-36.0); MEAN CORPUSCULAR VOLUME 92 fL (82-100); MONOCYTES # (AUTO) 0.7 K/uL (0.1-1.30); MONOCYTES % (AUTO) 8.8 % (2.0-12.0); NEUTROPHILS # (AUTO) 6.3 K/uL (1.8-8.9); NEUTROPHILS % (AUTO) 76.3 % (43.0-81.0); PLATELET COUNT (AUTO) 290 K/uL (150-450); RED BLOOD CELL COUNT(AUTO) 3.01 MIL/uL (4.0-5.2); RED CELL DISTRIBUTION WIDTH 22.5 % (11.5-15.0); WHITE BLOOD COUNT (AUTO) 8.3 K/uL (4.3-11.0)
[2024-12-09 07:00] VITALS: BP 124/90; TEMP 98.1; O2SAT 94
[2024-12-09 07:26] LABS: BILIRUBIN,TOTAL 0.7 mg/dL (0.2-1.0); CALCIUM, SERUM 8.2 mg/dL (8.5-10.1); CREATININE 0.6 mg/dL (0.6-1.3); MAGNESIUM 2.2 mg/dL (1.8-2.4); PHOSPHORUS 3.2 mg/dL (2.5-4.9); POTASSIUM 3.5 mmol/L (3.5-5.1); TOTAL PROTEIN, SERUM 5.9 g/dL (6.4-8.2)
[2024-12-09 07:59] LABS: ALBUMIN 1.4 g/dL (3.4-5.0)
[2024-12-09 12:00] VITALS: BP 116/84; TEMP 98.1; O2SAT 100
[2024-12-09 16:00] VITALS: BP 123/98; TEMP 98.2; O2SAT 99
[2024-12-09 20:00] VITALS: BP 141/77; TEMP 97.9; O2SAT 96
[2024-12-10] VITALS (7 sets, daily range): BP systolic 121–150; BP diastolic 60–97; TEMP 97.5–98.2; O2SAT 84–100
[2024-12-10 07:51] LABS: CALCIUM, SERUM 8.5 mg/dL (8.5-10.1); CREATININE 0.6 mg/dL (0.6-1.3); POTASSIUM 3.7 mmol/L (3.5-5.1)
== END 2024-12-11 | DRG 853 ==
LOC: ER 15:12 → ICU 18:41 → TELE 12-05 19:21
PROC: 5A1955Z Respiratory Ventilation, Greater than 96 Consecutive Hours (ICD-10-PCS; principal; 2024-12-03)
PROC: 02HV33Z Insertion of Infusion Device into Superior Vena Cava, Percutaneous Approach (ICD-10-PCS; 2024-12-03)
PROC: B548ZZA Ultrasonography of Superior Vena Cava, Guidance (ICD-10-PCS; 2024-12-03)
PROC: 30233N1 Transfusion of Nonautologous Red Blood Cells into Peripheral Vein, Percutaneous Approach (ICD-10-PCS; 2024-12-04)
PROC: 0W9B3ZZ Drainage of Left Pleural Cavity, Percutaneous Approach (ICD-10-PCS; 2024-12-06)
PROC: 0KBN0ZZ Excision of Right Hip Muscle, Open Approach (ICD-10-PCS; 2024-12-09)
PROC: 0KBP0ZZ Excision of Left Hip Muscle, Open Approach (ICD-10-PCS; 2024-12-09)
DX: A41.9 Sepsis, unspecified organism (principal); I21.4 Non-ST elevation (NSTEMI) myocardial infarction; L89.154 Pressure ulcer of sacral region, stage 4; J96.21 Acute and chronic respiratory failure with hypoxia; I21.A1 Myocardial infarction type 2; J15.69 Pneumonia due to other Gram-negative bacteria; N39.0 Urinary tract infection, site not specified; Z99.11 Dependence on respirator [ventilator] status; E87.29 Other acidosis; I48.20 Chronic atrial fibrillation, unspecified; J90 Pleural effusion, not elsewhere classified; G93.49 Other encephalopathy; B49 Unspecified mycosis; J93.9 Pneumothorax, unspecified; Z16.12 Extended spectrum beta lactamase (ESBL) resistance; K57.32 Diverticulitis of large intestine without perforation or abscess without bleeding; Z93.1 Gastrostomy status; Z93.0 Tracheostomy status; E78.5 Hyperlipidemia, unspecified; E88.09 Other disorders of plasma-protein metabolism, not elsewhere classified; G40.909 Epilepsy, unspecified, not intractable, without status epilepticus; R13.10 Dysphagia, unspecified; E03.9 Hypothyroidism, unspecified; Z79.890 Hormone replacement therapy; I50.9 Heart failure, unspecified; Z79.899 Other long term (current) drug therapy; Z79.82 Long term (current) use of aspirin; Z79.01 Long term (current) use of anticoagulants; Z79.51 Long term (current) use of inhaled steroids; I25.2 Old myocardial infarction; Z86.16 Personal history of COVID-19; Z79.4 Long term (current) use of insulin; Y95 Nosocomial condition; K21.9 Gastro-esophageal reflux disease without esophagitis; I95.89 Other hypotension; I25.10 Atherosclerotic heart disease of native coronary artery without angina pectoris; E11.9 Type 2 diabetes mellitus without complications; I11.0 Hypertensive heart disease with heart failure; D64.9 Anemia, unspecified; Z87.19 Personal history of other diseases of the digestive system; B96.4 Proteus (mirabilis) (morganii) as the cause of diseases classified elsewhere; B95.7 Other staphylococcus as the cause of diseases classified elsewhere
CPT/HCPCS: 31720; 36415; 36600; 71045-TC; 71250-TC; 80048-TC; 80053-TC; 80076-TC; 80202-TC; 81001; 82803-TC; 82962-TC; 83605-TC; 83735-TC; 83880; 83935-TC; 84100-TC; 84300-TC; 84443-TC; 84484-TC; 84550-TC; 85025-TC; 85610-TC; 85730-TC; 86850-TC; 87040-TC; 87070-TC; 87075-TC; 87081-TC; 87086-TC; 87102-TC; 87186-TC; 89051-TC; 93307-TC; 94002-TC; 94003-TC; 94640-TC; 94760-TC; 94762-TC; 94799-TC; A4223; A6213; A6253; A6403; A7526; G0378; J0692; J1815; J1938; J1953; J2185; J2248; J2405; J2470; J2543; J3370; J3475; J3480; J7030; J7042; J7050; J7060; P9016